=== PATIENT | male | born 1960 | race Caucasian/White ===

== ENCOUNTER 2017-01-25 12:59 | Emergency (ER) | payer OTHER ==
[~2017-01-25] VITALS: Ht 177.8 cm; Wt 62.1 kg
[~2017-01-25 12:59] MED LIST: ANTIBIOTIC; FLEXERIL10 MG PO; NAPROSYN-EC500 MG PO
[2017-01-25 13:35] VITALS: BP 133/85
[2017-01-25] MEDS ORDERED: NORCO 5/3251 TABLET PO (16:28)
[2017-01-25] MEDS ORDERED: MOTRIN600 MG PO (16:28)
== END 2017-01-25 16:47 | disposition home or self-care (01) ==
LOC: EME 12:59
DX: S22.32XA Fracture of one rib, left side, initial encounter for closed fracture (principal); S20.212A Contusion of left front wall of thorax, initial encounter; W10.9XXA Fall (on) (from) unspecified stairs and steps, initial encounter; Y92.009 Unspecified place in unspecified non-institutional (private) residence as the place of occurrence of the external cause; F17.200 Nicotine dependence, unspecified, uncomplicated
CPT/HCPCS: 71020; 99281; 99283

== ENCOUNTER 2017-06-05 13:22 | Emergency (ER) | payer OTHER ==
[~2017-06-05] VITALS: Ht 177.8 cm; Wt 61.8 kg
[~2017-06-05 13:22] MED LIST changes: +MOTRIN600 MG PO; +NORCO 5/3251 TABLET PO
[2017-06-05 14:19] LABS: HEMATOCRIT 44.1 % (38.0-50.0); HEMOGLOBIN 15.2 G/DL (12.5-16.6); MCH 33.1 PG (29.0-34.0); MCHC 34.5 G/DL (30.0-36.0); MCV 96.1 FL (86-99); PLATELET COUNT 232 K/uL (156-360); RBC DIS.WIDTH-CV 12.7 % (11.8-14.6); RBC DIS.WIDTH-SD 44.8 % (39-53); RED BLOOD COUNT 4.59 M/uL (4.00-5.50); WHITE BLOOD COUNT 9.2 K/uL (4.1-10.2)
[2017-06-05 14:55] LABS: CHLORIDE 107 MEQ/L (99-109); CREATININE 0.7 MG/DL (0.6-1.3); GFR ESTIMATE (CALCULATED) > 59 mL/min/ (58.99-99999); GLUCOSE 99 mg/dL (70-99); POTASSIUM 4.6 MEQ/L (3.7-5.4); SODIUM 138 MEQ/L (136-147); UREA NITROGEN (BUN) 6 mg/dL (9-23)
[2017-06-05] MEDS ORDERED: NAPROSYN500 MG PO (16:04)
[2017-06-05] MEDS ORDERED: CLINDAMYCIN HC300 MG PO (16:04)
[2017-06-05] MEDS ORDERED: ULTRAM50 MG PO (16:04)
[2017-06-05 16:19] VITALS: BP 137/80
== END 2017-06-05 16:44 | disposition home or self-care (01) ==
LOC: EME 13:22
PROVIDERS: Nurse Practitioner Family
DX: K04.7 Periapical abscess without sinus (principal); F17.200 Nicotine dependence, unspecified, uncomplicated
CPT/HCPCS: 70487; 80048; 85027; 99281; 99285; J7030